=== PATIENT | female | born 1960 | race Caucasian/White ===

== ENCOUNTER 2024-11-06 09:23 | Emergency (ER) | payer BC, SELFPAY ==
--- NOTE | ~2024-11-06 | XR_ITS ---
XR ankle LT min 3V Ordering provider: Vesna Turner NP History: . injury . Comparison: None. FINDINGS: BONES: Comminuted fracture of the distal fibula. JOINT SPACES: The ankle mortise is normal. SOFT TISSUES: Soft tissue swelling over the medial and lateral malleoli. IMPRESSION: Comminuted fracture of the distal left fibula. Reviewed, dictated and finalized at location [facility]
[2024-11-06 09:39] VITALS: BP 146/64; PULSE 122; RESP 20; TEMP 36.9; O2SAT 99
--- NOTE | 2024-11-06 10:09 | ED.LOWEXIN ---
HPI - Extremity Injury (Lower) General Stated Complaint: left ankle injury,bump on head Time Seen by Provider: 11/06/24 10:25 Source: patient and RN notes reviewed Mode of arrival: ambulatory Limitations: no limitations History of Present Illness HPI Narrative: 64-year-old female presents concern for left ankle injury. Reports she fell last night and injured her ankle. She has been using crutches since then. Reports swelling, bruising, pain with weight-bearing. She reports tingling to the bottom of her foot she moves. She denies decreased range of motion to the digits. MD complaint: ankle injury Related Data Home Medications ?Medication ?Instructions ?Recorded ?Confirmed ?Last Taken ?Type meloxicam 15 mg tablet 15 mg PO DAILY 11/06/24 11/06/24 Unknown History sulfasalazine 500 mg PO 11/06/24 Unknown History tablet,delayed release tirzepatide (weight loss) 2.5 2.5 mg subcut WEEKLY 11/06/24 11/06/24 Unknown History mg/0.5 mL subcutaneous pen injector (Zepbound) Allergies Allergy/AdvReac Type Severity Reaction Status Date / Time Penicillins Allergy Severe hive Verified 11/06/24 10:15 povidone-iodine (From Allergy Intermediate Hives Verified 11/06/24 10:16 Betadine) acetaminophen (From Percocet) Allergy Loss of Verified 11/06/24 10:16 Consciousness oxycodone (From Percocet) Allergy Loss of Verified 11/06/24 10:16 Consciousness Review of Systems Review of Systems: CONSTITUTIONAL: Denies malaise, chills, sweats, or fever. SKIN: Denies rash or itching, open skin, laceration, abrasion, redness, warmth MUSCULOSKELETAL: Reports left ankle pain, swelling, bruising NEUROLOGIC: Denies numbness, weakness All systems reviewed & are unremarkable except as noted in HPI and below PMFSH Past Medical History Medical History (Updated 11/06/24 @ 10:49 by Vesna Turner NP) Arthritis Social History Social History (Updated 01/11/22 @ 09:25 by Barbara Ospina MA) Smoking status: Never smoker Alcohol intake: current Substance use: never Comments At time of signature, agree with nursing past medical, surgical, social and family history. There is no relevant family history pertinent to the presenting complaint Exam Narrative: GENERAL: Well-appearing, well-nourished, and in no acute distress. HEAD: Normocephalic, atraumatic. EYES: PERRLA, conjunctivae clear NECK: Supple. CHEST: Speaks in full sentences. No respiratory distress. HEART: Regular rate and rhythm. Normal and equal peripheral pulses. EXTREMITIES: Left ankle, foot, digits have grossly normal strength and sensation, grossly normal range of motion. Moderate circumferential ankle and dorsal foot edema, mild ecchymosis. 5/5 strength with digit flexion and extension. Normal sensation with sensitivity to light touch and pain. General ankle tenderness. No open wounds, no skin tenting, no devitalized tissue or atrophy, no trophic changes, no obvious deformity, alignment normal, nearby joints and structures intact. Distal pulses palpable and equal bilaterally, skin warm, dry, pink. Capillary refill less than 3 seconds. SKIN: Warm, dry, no rash. NEURO: Alert and oriented x3. PSYCH: Normal mood and affect Course Course Emergency Course: Patient is aware of diagnosis, understands and agrees to treatment plan. Anticipatory guidance given. Patient agrees to follow-up as directed and is aware of reasons to seek care at the emergency department. Portions of this record may have been created with voice recognition software Level of Care: Express Care Visit Vital Signs Vital signs: Vital Signs Temperature 98.4 F 11/06/24 09:39 Pulse Rate 122 H 11/06/24 09:39 Respiratory Rate 20 11/06/24 09:39 Blood Pressure 146/64 H 11/06/24 09:39 Pulse Oximetry 99 11/06/24 09:39 Oxygen Delivery Room Air 11/06/24 09:39 Temperature 98.4 F 11/06/24 09:39 Pulse Rate 122 H 11/06/24 09:39 Respiratory Rate 20 11/06/24 09:39 Blood Pressure 146/64 H 11/06/24 09:39 Pulse Oximetry 99 11/06/24 09:39 Oxygen Delivery Room Air 11/06/24 09:39 Reviewed. Procedures Orthopedic Splinting/Casting Injury #1: Splinting/Casting Date: 11/06/24 Splinting/Casting Time: 10:35 Side: left Splint: customized in ED OCL: short leg Pre-Procedure Neuro Vascular Exam: normal Post-Procedure Neuro Vascular Exam: normal Other Orthopedic Equipment: crutches MDM - Extremity Injury (Lower) MDM Narrative Medical decision making narrative: Patients injury and pain is consistent with musculoskeletal etiology. No signs of neurological or vascular compromise on exam. Compartments and tissues are soft without signs of compartment syndrome. Pain is felt appropriate for further evaluation on an outpatient basis. Imaging Data My impression: Images reviewed, interpreted by radiologist, agree, see report. Radiologist's impression: XR ankle LT min 3V Ordering provider: Vesna Turner NP History: . injury . Comparison: None. FINDINGS: BONES: Comminuted fracture of the distal fibula. JOINT SPACES: The ankle mortise is normal. SOFT TISSUES: Soft tissue swelling over the medial and lateral malleoli. IMPRESSION: Comminuted fracture of the distal left fibula. Critical Care Time Critical Care Time Critical Care Time: No Discharge Plan Discharge Clinical Impression: Fracture of distal end of fibula Qualifiers: Encounter type: initial encounter Fracture type: closed Laterality: left Patient Disposition: Home, Self-Care Condition: Stable Instructions: Ankle Fracture (ED) Additional Instructions: Please rest, ice and elevate the affected extremity. Please take Motrin 600mg every 8 hours, as needed, for pain (take with food). Follow up with Orthopedic Surgery in 1-2 days for further evaluation - please call for an appointment. Keep cast clean, dry and on. Please use garbage bag while showering to keep cast dry. Use crutches. Please go to ER immediately for increased pain, tingling/numbness, swelling, redness, and fever Patient Language: [place] Prescriptions: No Action azithromycin 250 mg tablet hydrocodone-acetaminophen 5-325 mg tablet ondansetron HCl 4 mg tablet sulfasalazine 500 mg tablet,delayed release (DR/EC) PO Follow-up/Referrals: PHYSICIAN NOT ON STAFF,NONSTAFF [Primary Care Provider] - Gaston Pham MD [Physician] - Time of Disposition: 10:49
== END 2024-11-06 11:00 | disposition home or self-care (01) ==
PROVIDERS: Emergency Provider Nurse Practitioner
DX: S82.832A Other fracture of upper and lower end of left fibula, initial encounter for closed fracture (principal); W19.XXXA Unspecified fall, initial encounter; M19.90 Unspecified osteoarthritis, unspecified site
CPT/HCPCS: 29515; 73610; 99214; G0463